=== PATIENT | male | born 2000 | race African-American/Black ===

== ENCOUNTER 2020-06-18 21:53 | Emergency (ER) | payer OTHER ==
[2020-06-18 22:01] VITALS: BP 123/65; PULSE 70; TEMP 98.6; BMI 23.1
[2020-06-18] MEDS ORDERED: KETOROLAC TROMETHAMINE 30 MG/1 ML VIAL IM ONE (23:29)
[2020-06-18] MEDS ORDERED: KETOROLAC TROMETHAMINE 30 MG/1 ML VIAL ONE (23:41)
== END 2020-06-19 00:33 | disposition home or self-care (01) ==
LOC: JER 21:53
PROC: 3E0233Z Introduction of Anti-inflammatory into Muscle, Percutaneous Approach (ICD-10-PCS; principal; 2020-06-18)
DX: M54.5 Low back pain (principal); V89.2XXA Person injured in unspecified motor-vehicle accident, traffic, initial encounter
CPT/HCPCS: 99284-25

== ENCOUNTER 2020-09-17 14:00 | Emergency (ER) | payer OTHER ==
[2020-09-17 14:13] VITALS: BP 121/56; PULSE 70; TEMP 98; BMI 25.4
[2020-09-17] MEDS ORDERED: AZITHROMYCIN 500 MG TABLET PO ONE (15:26)
[2020-09-17] MEDS ORDERED: AZITHROMYCIN 250 MG TABLET ONE (15:28)
[2020-09-17 17:30] LABS: EPI CELLS 10 /uL (0-25.1); HYALINE CASTS 4 /uL (0-3.1); PH,URINE >= 9.0 (5.0-8.0); URINE APPEARANCE CLEAR; URINE BACTERIA 74 /uL (0-1359); URINE BILIRUBIN NEGATIVE (NEGATIVE); URINE COLOR YELLOW; URINE GLUCOSE (UA) NEGATIVE (NEGATIVE); URINE KETONE NEGATIVE (NEGATIVE); URINE LEUK ESTERASE 1+ (NEGATIVE); URINE NITRITE NEGATIVE (NEGATIVE); URINE PROTEIN NEGATIVE (NEGATIVE); URINE RBC 8 /uL (0-23.9); URINE WBC 290 /uL (0-25.8)
== END 2020-09-17 15:43 | disposition home or self-care (01) ==
LOC: JERFT 14:00
DX: R36.9 Urethral discharge, unspecified (principal)
CPT/HCPCS: 36415; 81003; 87086; 87491; 87591; 99284-25

== ENCOUNTER 2022-05-20 18:16 | Emergency (ER) | payer OTHER ==
[2022-05-20 19:46] VITALS: BP 119/54; PULSE 69; RESP 15; TEMP 97.9; BMI 25.4
[2022-05-20] MEDS ORDERED: KETOROLAC TROMETHAMINE 30 MG/1 ML VIAL IM ONE (21:54)
[2022-05-20] MEDS ORDERED: KETOROLAC TROMETHAMINE 30 MG/1 ML VIAL ONE (21:55)
[2022-05-20] MEDS ORDERED: METHOCARBAMOL 500 MG TABLET PO ONE (22:35)
[2022-05-20] MEDS ORDERED: METHOCARBAMOL 500 MG TABLET ONE (22:36)
== END 2022-05-21 00:22 | disposition home or self-care (01) ==
LOC: JERFT 18:16 → JER 18:16 → JERFT 05-21 00:22
PROC: 3E0233Z Introduction of Anti-inflammatory into Muscle, Percutaneous Approach (ICD-10-PCS; principal; 2022-05-20)
DX: R51.9 Headache, unspecified (principal); M54.50 Low back pain, unspecified; M79.645 Pain in left finger(s); V43.53XA Car driver injured in collision with pick-up truck in traffic accident, initial encounter
CPT/HCPCS: 70450-TC; 72100-TC-FY; 73130-TC-LT-FY; 99285-25

== ENCOUNTER 2023-02-16 19:24 | Day surgery (SDC) | payer OTHER ==
[2023-02-16 19:39] VITALS: BMI 24.4
[2023-02-16 20:01] LABS: HEMOGLOBIN 15.8 G/dL (11.7-16.9); MCH 29.7 pg (25.7-33.7); MCHC 33.6 g/dl (32.0-35.9); MEAN CELL VOLUME 88.4 fl (80-96); MEAN PLT VOLUME 7.4 fl (7.5-11.1); PLATELET COUNT 230.9 10^3/uL (134-434); RBC 5.32 10^6/uL (4.00-5.60); RDW 14.7 % (11.9-15.9); WHITE BLOOD COUNT 10.1 10^3/uL (4.0-10.8)
[2023-02-16 20:16] LABS: ALBUMIN 4.5 g/dl (3.4-5.0); BILIRUBIN,TOTAL 0.9 mg/dl (0.2-1); CALCIUM 9.9 mg/dl (8.5-10.1); POTASSIUM 3.9 mmol/L (3.5-5.1); SGPT/ALT 5.7 U/L (7-52); TOT PROT 7.8 g/dl (6.4-8.2)
[2023-02-16] MEDS ORDERED: morphine SULFATE 4 MG/ML VIAL ONE (21:41)
[2023-02-16] MEDS ORDERED: PIPERACILLIN/TAZOBACTAM 4.5 GM VIAL IVPB ONE (21:41)
[2023-02-16] MEDS ORDERED: PIPERACILLIN/TAZOB 4.5 GM 4.5 GM in DEXTROSE 5%-WATER 100 ML IVPB ONE (21:44)
[2023-02-16] MEDS ORDERED: morphine CARPU-JECT 2 MG/1 ML DISP.SYRIN IVPUSH ONE (21:45)
[2023-02-16] MEDS ORDERED: SODIUM CHLORIDE 1,000 ML IV SCH (21:45)
[2023-02-16] MEDS ORDERED: ACETAMINOPHEN 1000 MG/100 ML BAG IVPB PRN (22:23)
[2023-02-16] MEDS ORDERED: DEXTROSE 5%-NORMAL SALINE 1,000 ML IV SCH (22:30)
[2023-02-17] MEDS: PIPERACILLIN/TAZOB 3.375 GM 3.375 GM in DEXTROSE 5%-WATER - 50 ML IVPB SCH ×3 (05:26→22:45)
[2023-02-17 08:56] LABS: BASO % 0.5 % (0-2.0); EOS % 1.3 % (0-4.5); HEMATOCRIT 42.9 % (35.4-49); HEMOGLOBIN 13.7 GM/dL (11.7-16.9); MCHC 31.9 g/dl (32.0-35.9); MEAN CELL VOLUME 87.7 fl (80-96); MEAN PLT VOLUME 8.5 fl (7.5-11.1); MONO % 10.6 % (3.8-10.2); NEUT % 73.6 % (42.8-82.8); PLATELET COUNT 246 10^3/uL (134-434); RDW 13.8 % (11.9-15.9); WHITE BLOOD COUNT 11.3 K/mm3 (4.0-10.0)
[2023-02-17 10:17] LABS: CALCIUM 9.1 mg/dL (8.5-10.1)
[2023-02-17 10:18] LABS: BLOOD UREA NITROGEN 6.8 mg/dL (7-18); MAGNESIUM 2.2 mg/dL (1.8-2.4)
[2023-02-17 10:21] LABS: CREATININE 1.1 mg/dL (0.55-1.3); PHOSPHOROUS 3.9 mg/dL (2.5-4.9)
[2023-02-17] MEDS ORDERED: BUPIVACAINE HCL/PF 0.5% (5MG/ML) 10 ML VIAL ONE (11:08)
[2023-02-17] MEDS ORDERED: ROCURONIUM BROMIDE 50 MG/5 ML SYRINGE ONE (11:51)
[2023-02-17] MEDS ORDERED: PROPOFOL 20 ML ONE ×2 (11:51→12:51)
[2023-02-17] MEDS ORDERED: MIDAZOLAM HCL 2 MG/2 ML SINGLE DOSE VIAL ONE (11:51)
[2023-02-17] MEDS ORDERED: LIDOCAINE HCL 1%, 10 MG/ML (20ML VIAL) INF ONE ×2 (12:15→12:23)
[2023-02-17] MEDS ORDERED: BUPIVACAINE HCL/PF 0.5% (5MG/ML) 10 ML VIAL IJ ONE ×2 (12:15→12:23)
[2023-02-17] MEDS ORDERED: ONDANSETRON 4 MG/2 ML VIAL IVPUSH PRN ×2 (12:30→13:23)
[2023-02-17] MEDS ORDERED: LACTATED RINGERS SOLUTION 1,000 ML IV SCH (12:30)
[2023-02-17] MEDS ORDERED: NEOSTIGMINE METHYLSULFATE 0.5 MG/1 ML - 10 ML MDV ONE (12:50)
[2023-02-17] MEDS ORDERED: oxyCODONE HCL 5 MG TABLET PO PRN (13:23)
[2023-02-17] MEDS ORDERED: IBUPROFEN 600 MG TABLET (FP) PO PRN (13:23)
[2023-02-17] MEDS: LACTATED RINGERS SOLUTION 1,000 ML IV SCH ×2 (14:20→23:10)
[2023-02-17] MEDS: ACETAMINOPHEN 500 MG TABLET (FP) PO PRN ×2 (16:19→20:55)
[2023-02-17] MEDS: oxyCODONE HCL 5 MG TABLET PO PRN ×2 (16:20→20:54)
[2023-02-18] MEDS: LACTATED RINGERS SOLUTION 1,000 ML IV SCH (06:09)
[2023-02-18] MEDS: ACETAMINOPHEN 500 MG TABLET (FP) PO PRN (06:16)
[2023-02-18] MEDS: oxyCODONE HCL 5 MG TABLET PO PRN (06:16)
[2023-02-18 08:23] VITALS: BP 116/76; PULSE 69; RESP 19; TEMP 97.8
[2023-02-18 08:26] LABS: BASO % 0.3 % (0-2.0); EOS % 0.5 % (0-4.5); HEMATOCRIT 40.6 % (35.4-49); HEMOGLOBIN 13.1 GM/dL (11.7-16.9); LYMPH % 12.9 % (8-40); MCH 28.3 pg (25.7-33.7); MCHC 32.3 g/dl (32.0-35.9); MEAN CELL VOLUME 87.5 fl (80-96); MEAN PLT VOLUME 8.6 fl (7.5-11.1); MONO % 9.3 % (3.8-10.2); PLATELET COUNT 251 10^3/uL (134-434); RBC 4.64 M/mm3 (4.00-5.60); RDW 13.9 % (11.9-15.9); WHITE BLOOD COUNT 14.2 K/mm3 (4.0-10.0)
[2023-02-18 09:19] LABS: POTASSIUM 4.5 mmol/L (3.5-5.1)
[2023-02-18 09:31] LABS: CALCIUM 9.3 mg/dL (8.5-10.1)
[2023-02-18 09:32] LABS: BLOOD UREA NITROGEN 4.5 mg/dL (7-18)
== END 2023-02-18 10:12 | disposition home or self-care (01) ==
LOC: FER 19:24 → J5S 22:18 → UNDOADMOB 22:18 → J5S 02-17 03:45 → INTOOBSV 02-17 03:45 → JASUSAT 02-17 13:36 → J5S 02-17 13:56 → JASUSAT 02-18 10:12
PROC: 0DTJ4ZZ Resection of Appendix, Percutaneous Endoscopic Approach (ICD-10-PCS; principal; 2023-02-17 11:00)
DX: K35.80 Unspecified acute appendicitis (principal)
CPT/HCPCS: 36415; 74177-TC; 80048; 80053; 83735; 84100; 85025; 85027; 86850; 86900; 86901; 87635; 88304-TC; 94010; 94760; 99285-25; Q9967

== ENCOUNTER 2023-06-17 17:40 | Emergency (ER) | payer OTHER ==
[2023-06-17] MEDS ORDERED: KETOROLAC TROMETHAMINE 30 MG/1 ML VIAL IM ONE (17:55)
[2023-06-17 18:01] VITALS: BP 120/74; PULSE 50; RESP 16; TEMP 99; BMI 23.3
[2023-06-17] MEDS ORDERED: KETOROLAC TROMETHAMINE 30 MG/1 ML VIAL ONE (18:07)
== END 2023-06-17 18:20 | disposition home or self-care (01) ==
LOC: FER 17:40
PROC: 3E0233Z Introduction of Anti-inflammatory into Muscle, Percutaneous Approach (ICD-10-PCS; principal; 2023-06-17)
DX: K08.89 Other specified disorders of teeth and supporting structures (principal)
CPT/HCPCS: 99284-25

== ENCOUNTER 2023-06-27 21:23 | Emergency (ER) | payer OTHER ==
[2023-06-27 21:27] VITALS: BP 123/68; PULSE 89; RESP 14; TEMP 97.8; BMI 22.3
== END 2023-06-27 21:58 | disposition home or self-care (01) ==
LOC: FER 21:23
DX: M54.9 Dorsalgia, unspecified (principal); V49.40XA Driver injured in collision with unspecified motor vehicles in traffic accident, initial encounter; Y92.410 Unspecified street and highway as the place of occurrence of the external cause
CPT/HCPCS: 99282-25